=== PATIENT | female | born 1940 | race Caucasian/White ===

== ENCOUNTER 2017-09-21 11:48 | Emergency (ER) | payer BC, MEDICARE ==
[2017-09-21] MEDS ORDERED: DIPHENHYDRAMINE HCL 50 MG/ML VIAL IV ONE ×2 (13:14→13:41)
[2017-09-21] MEDS ORDERED: METHYLPREDNISOLONE INJ 125 MG/2 ML SDV IV ONE ×2 (13:14→13:42)
[2017-09-21] MEDS ORDERED: FAMOTIDINE INJ/PF 20 MG/2 ML SDV IV ONE ×2 (13:14→13:42)
--- NOTE | 2017-09-21 13:17 | ER Document Report ---
ED Medical Screen (RME) - General Chief Complaint: Bee Sting Stated Complaint: BEE STING/POSSIBLE ALLERGIC REACTION Time Seen by Provider: 09/21/17 13:14 Mode of Arrival: Ambulatory Information source: Patient TRAVEL OUTSIDE OF THE [place] IN LAST 30 DAYS: No - HPI Patient complains to provider of: bee sting Onset: This morning - pt states she was stung by a bee earlier today (?has allergy to bees) - deveoped some redness around area of sting ( R arm) -- denies rash, SOB - Related Data Allergies/Adverse Reactions: alcohol Allergy (Verified 09/21/17 11:57) Penicillins Allergy (Verified 09/21/17 11:57) zolmitriptan [From Zomig] Allergy (Verified 09/21/17 11:57) altaryl Allergy (Uncoded 09/21/17 13:05) antibiotics Allergy (Uncoded 09/21/17 11:58) coumadin Allergy (Uncoded 09/21/17 13:05) definity Allergy (Uncoded 09/21/17 13:05) narcotics Allergy (Uncoded 09/21/17 11:58) urbatrate Allergy (Uncoded 09/21/17 11:57) Past Medical History - Social History Chew tobacco use (# tins/day): No Frequency of alcohol use: None Drug Abuse: None Endocrine Medical History: Reports: Hx Diabetes Mellitus Type 2 Renal/ Medical History: Denies: Hx Peritoneal Dialysis Past Surgical History: Reports: Hx Appendectomy, Hx Section, Hx Hysterectomy, Hx Orthopedic Surgery - rt hip replacement Physical Exam - Vital signs Vitals: Temp Pulse Resp BP Pulse Ox 97.6 F 84 18 149/72 H 96 09/21/17 11:57 09/21/17 11:57 09/21/17 11:57 09/21/17 11:57 09/21/17 11:57 Course - Vital Signs Vital signs: Temp Pulse Resp BP Pulse Ox 97.6 F 84 18 149/72 H 96 09/21/17 11:57 09/21/17 11:57 09/21/17 11:57 09/21/17 11:57 09/21/17 11:57
[2017-09-21 14:43] VITALS: BP 142/70
--- NOTE | 2017-09-28 09:59 | ER Document Report ---
ED Skin Rash/Insect Bite/Abscs - General Chief Complaint: Bee Sting Stated Complaint: BEE STING/POSSIBLE ALLERGIC REACTION Time Seen by Provider: 09/21/17 13:14 Mode of Arrival: Ambulatory TRAVEL OUTSIDE OF THE [place] IN LAST 30 DAYS: No - HPI Patient complains to provider of: Other - pt was stung by a bee earlier this am -- took po benadryl and feels better now - Related Data Allergies/Adverse Reactions: alcohol Allergy (Verified 09/21/17 11:57) Penicillins Allergy (Verified 09/21/17 11:57) zolmitriptan [From Zomig] Allergy (Verified 09/21/17 11:57) altaryl Allergy (Uncoded 09/21/17 13:05) antibiotics Allergy (Uncoded 09/21/17 11:58) coumadin Allergy (Uncoded 09/21/17 13:05) definity Allergy (Uncoded 09/21/17 13:05) narcotics Allergy (Uncoded 09/21/17 11:58) urbatrate Allergy (Uncoded 09/21/17 11:57) Past Medical History - General Information source: Patient - Social History Smoking Status: Never Smoker Cigarette use (# per day): No Chew tobacco use (# tins/day): No Smoking Education Provided: No Frequency of alcohol use: None Drug Abuse: None Family History: None Patient has suicidal ideation: No Patient has homicidal ideation: No Endocrine Medical History: Reports: Hx Diabetes Mellitus Type 2 Renal/ Medical History: Denies: Hx Peritoneal Dialysis Past Surgical History: Reports: Hx Appendectomy, Hx Section, Hx Hysterectomy, Hx Orthopedic Surgery - rt hip replacement Review of Systems - Review of Systems Constitutional: No symptoms reported EENT: No symptoms reported Cardiovascular: No symptoms reported Respiratory: No symptoms reported Gastrointestinal: No symptoms reported Musculoskeletal: No symptoms reported -: Yes All other systems reviewed and negative Physical Exam - Vital signs Vitals: Temp Pulse Resp BP Pulse Ox 97.6 F 84 18 149/72 H 96 09/21/17 11:57 09/21/17 11:57 09/21/17 11:57 09/21/17 11:57 09/21/17 11:57 - General General appearance: Appears well In distress: None - HEENT Head: Normocephalic Pharynx: Normal Neck: Normal - Respiratory Respiratory status: No respiratory distress Breath sounds: Normal - Cardiovascular Rhythm: Regular Heart sounds: Normal auscultation - Extremities General upper extremity: Normal inspection General lower extremity: Normal inspection - Neurological Neuro grossly intact: Yes Cognition: Normal Orientation: AAOx4 Course - Re-evaluation Re-evalutation: 09/28/17 09:58 pt. feels well at tiime of d/c -- expressed desire to go home - Vital Signs Vital signs: Temp Pulse Resp BP Pulse Ox 97.8 F 80 18 142/70 H 100 09/21/17 14:28 09/21/17 14:28 09/21/17 14:28 09/21/17 14:28 09/21/17 14:28 Discharge - Discharge Clinical Impression: Allergic reaction to bee sting Bee sting reaction Qualifiers: Encounter type: initial encounter Injury intent: accidental or unintentional Qualified Code(s): T63.441A - Toxic effect of venom of bees, accidental ( unintentional), initial encounter Condition: Stable Disposition: HOME, SELF-CARE Additional Instructions: reest, take meds as prescribed, return if worse Prescriptions: Diphenhydramine HCl [Benadryl] 25 mg PO BID #30 capsule Methylprednisolone [Medrol] 4 mg PO ASDIR PRN #1 tablet PRN Reason: Referrals: JOSEPH COSTA MD [ACTIVE STAFF] - Follow up as needed
== END 2017-09-21 14:29 | disposition home or self-care (01) ==
LOC: ER 11:48
DX: T63.441A Toxic effect of venom of bees, accidental (unintentional), initial encounter (principal)
CPT/HCPCS: 99282; 96374; 96375; J1200; J2930; S0028